=== PATIENT | male | born 1930 | race Caucasian/White ===

== ENCOUNTER → 2019-08-07 | Outpatient (CLI) | payer OTHER ==
[~2019-08-07] MED LIST: DIGO.25; LISHYD2012; METOPROLOL; RANI150; SIMV40; WARF5
== END | disposition home or self-care (01) ==
LOC: LAB SHORT 14:46 → PLD 14:46
DX: L30.9 Dermatitis, unspecified (principal); D48.5 Neoplasm of uncertain behavior of skin
CPT/HCPCS: 88305; 88312

== ENCOUNTER 2019-09-11 22:03 | Observation (INO) | payer OTHER ==
[~2019-09-11] VITALS: Ht 172.7 cm; Wt 78.0 kg
[2019-09-11 23:58] LABS: BASOPHILS ABSOLUTE AUTO 0.03 K/mm3 (0.00-0.23); BASOPHILS PERCENT AUTO 0 % (0-2); EOSINOPHILS PERCENT AUTO 0 % (0-6); Hemoglobin 14.7 g/dL (13.5-17.5); IMMATURE GRAN PERCENT AUTO 5 % (0-1); LYMPHOCYTES ABSOLUTE AUTO 1.35 K/mm3 (0.84-5.20); LYMPHOCYTES PERCENT AUTO 17 % (21-46); MONOCYTES ABSOLUTE AUTO 0.64 K/mm3 (0.16-1.47); MONOCYTES PERCENT AUTO 8 % (4-13); Mean Corpuscular HGB Conc 32.7 g/dL (31.5-36.5); Mean Corpuscular Volume 101 fL (80-100); NEUTROPHILS ABSOLUTE AUTO 5.58 K/mm3 (1.96-9.15); NEUTROPHILS PERCENT AUTO 70 % (41-73); Platelet Count 235 K/mm3 (150-400); RDW Coefficient Variation 15.1 % (11.7-14.2); RDW Standard Deviation 56.6 fL (35.1-46.3); Red Blood Cell Count 4.46 M/mm3 (4.30-5.90)
[2019-09-12 00:14] LABS: Alanine Aminotransfer (ALT/SGP 24 U/L (12-78); Albumin, Blood 3.7 g/dL (3.4-5.0); Albumin/Globulin Ratio 0.9 (0.8-1.8); Alk Phos 120 U/L (50-136); Anion Gap 12 mmol/L (6-16); Aspartate Aminotrans (AST/SGOT 25 U/L (12-37); Bilirubin, Total 1.9 mg/dL (0.1-1.0); Blood Urea Nitrogen 17 mg/dL (8-24); Bun/Creatinine Ratio 20.5 (12.0-20.0); CO2, Blood 22 mmol/L (21-32); Calcium, Blood 8.6 mg/dL (8.5-10.1); Chloride, Blood 101 mmol/L (98-108); Creatinine, Blood 0.83 mg/dL (0.60-1.20); Globulin, Blood 4.1 g/dL (2.2-4.0); Glomerular Filtration Rate >60 (60-); Glucose, Blood 269 mg/dL (70-99); Potassium, Blood 4.2 mmol/L (3.5-5.5); Sodium, Blood 135 mmol/L (136-145); Total Protein, Blood 7.8 g/dL (6.4-8.2); Troponin I <0.015 ng/mL (0.000-0.040)
[2019-09-12] MEDS ORDERED: ELIQUIS2.5 MG PO (00:14)
[2019-09-12] MEDS ORDERED: ETHACRYNIC ACID25 MG PO (00:15)
[2019-09-12] MEDS ORDERED: Tapazole5 MG PO (00:17)
--- NOTE | 2019-09-12 03:38 | NUR ---
PATIENT BEING ADMITTED FOR SOB, DEHYDRATION, HYPOXEMIA. ARRIVED TO THE FLOOR VIA GURNEY, TRANSFERRED TO BED WITH 1 PERSON ASSIST. REPORTS HE STARTED TO HAVE A PRODUCTIVE COUGH ABOUT 3-4 DAYS AGO, BUT SOB FOR ONLY A DAY WHICH INCREASED IN THE LAST 24 HOURS. NO HISTORY OF LUNG DISEASE, BUT HAS SOME MILD CARDIAC DISEASE. BNP 780, NO HISTORY OF CHF. LUNG SOUNDS ARE INSPIRATORY AND EXPIRTORY WHEEZES IN THE UPPER LOBES, RHONCI IN THE BASES. SOB NOTED WITH EXERTION. RESP EVEN AND SHALLOW, NO LABOR BREATHING. COUGH IS PRODUCTIVE AT TIMES BUT PATIENT IS UNABLE TO DESCRIBE STATES HE SWALLOWS IT. ENCOURAGED HIM TO SPIT IT OUT INSTEAD. HR IRREGULAR, NO MURMUR, PACEMAKER/DEFIB NOTED TO THE LEFT CHEST WALL. SCATTERED SKIN BRUISING NOTED FROM FALLS, AND HIS DOG HE STATES. DENIES ANY BOWEL OR URINARY PROBLEMS. IS VERY WEAK STANDING AT THIS TIME. RECOMMEND 1 PERSON ASSIST TO THE BSC, AND URINAL USE. INSTRUCTED TO CALL IF NEED TO USE THE BATHROOM. ADMISSION COMPLETED WITH SON'S HELP. DENIED FLUE SHOT, SANDWHICH GIVEN AND SODA. TUCKED HIM INTO BED. CALL LIGHT IN REACH.
[2019-09-12 05:46] LABS: Adenovirus Not Detected (NOT DETECT); Bordetella pertussis Not Detected (NOT DETECT); Chlamydophila pneumoniae Not Detected (NOT DETECT); Coronavirus 229E Not Detected (NOT DETECT); Coronavirus HKU1 Not Detected (NOT DETECT); Coronavirus NL63 Not Detected (NOT DETECT); Coronavirus OC43 Not Detected (NOT DETECT); Human Metapneumovirus Not Detected (NOT DETECT); Human Rhinovirus/Enterovirus Detected (NOT DETECT); Influenza A Not Detected (NOT DETECT); Influenza A/2009-H1 Not Detected (NOT DETECT); Influenza A/H1 Not Detected (NOT DETECT); Influenza A/H3 Not Detected (NOT DETECT); Influenza B Not Detected (NOT DETECT); Mycoplasma pneumoniae Not Detected (NOT DETECT); Parainfluenza Virus 1 Not Detected (NOT DETECT); Parainfluenza Virus 2 Not Detected (NOT DETECT); Parainfluenza Virus 3 Not Detected (NOT DETECT); Parainfluenza Virus 4 Not Detected (NOT DETECT); Respiratory Syncytial Virus Not Detected (NOT DETECT)
--- NOTE | 2019-09-12 05:57 | NUR ---
SHIFT SUMMARY: SHAYY WAS ADMITTED TO THE FLOOR FOR SOB, HYPOXEMIA, DEHYDRATION AROUND 3 THIS AM. HIS SON AND FRIEND WENT HOME FOR THE EVENING. LUNG SOUNDS ARE RHONCI IN THE BASES AND INSPIRATORY AND EXPIRTORY WHEEZES IN THE UPPER LOBES. O2 AT 2 LITERS AND RUNNING IN THE 90'S. HE IS USUALLY RA AT HOME. COUGH IS PRODUCTIVE BUT HE SWALLOWS IT, ENCOURAGE TO SPIT OUT. RESPIRTORY PANEL SENT TO LAB AWAITING RESULTS. SETTLED HIM INTO THE ROOM, HE SLEPT THE REST OF THE NIGHT. CALL LIGHT REMAINED IN REACH.
--- NOTE | 2019-09-12 09:39 | NUR ---
PERMISSION PATIENT GAVE PERMISSION OF CARE ON 09/12/2019
[2019-09-12 09:57] LABS: Alanine Aminotransfer (ALT/SGP 23 U/L (12-78); Albumin, Blood 3.5 g/dL (3.4-5.0); Albumin/Globulin Ratio 0.9 (0.8-1.8); Alk Phos 110 U/L (50-136); Anion Gap 5 mmol/L (6-16); Aspartate Aminotrans (AST/SGOT 31 U/L (12-37); Bilirubin, Total 1.5 mg/dL (0.1-1.0); Blood Urea Nitrogen 15 mg/dL (8-24); Bun/Creatinine Ratio 19.9 (12.0-20.0); CO2, Blood 29 mmol/L (21-32); Calcium, Blood 8.9 mg/dL (8.5-10.1); Chloride, Blood 102 mmol/L (98-108); Creatinine, Blood 0.75 mg/dL (0.60-1.20); Globulin, Blood 4.1 g/dL (2.2-4.0); Glomerular Filtration Rate >60 (60-); Glucose, Blood 162 mg/dL (70-99); Potassium, Blood 4.4 mmol/L (3.5-5.5); Sodium, Blood 136 mmol/L (136-145); Total Protein, Blood 7.6 g/dL (6.4-8.2)
--- NOTE | 2019-09-12 18:26 | NUR ---
SHIFT SUMMARY- PT IS A/O, PLESANT AND COOPERATIVE. HIS IS STILL HAVING WHEEZES, AND RONCHI. HE IS EATING AND DRINKING WELL. PT FAMILY VISITED INTERMITENTLY THORUGHOUT THIS SHIFT. PT IS UP TO THE RESTROOM.
--- NOTE | 2019-09-13 04:46 | NUR ---
SHIFT SUMMARY ADMITTED FOR SOB. DNR CODE. POSITIVE FOR RHINOVIRUS. CARDIAC DIET, PACEMAKER IN PLACE, 1 ASSIST, A&O X4. RA AT HOME, 2 LPM O2 HERE. [facility] PT. BNP WAS ELEVATED @ ADMIT (780), NO PREVIOUS HX OF CHF. HX: REACTIVE AIRWAY DISEASE, AFIB, HYPERTHYROID, GERD, HYPERLIPIDEMIA, PRESBYCUSIS, FREQUENT FALLS. PROCALCITONIN ONLY SLIGHTLY ELEVATED AT 0.06.
--- NOTE | 2019-09-13 18:25 | NUR ---
PT AOX4 AND COOPERATIVE OF CARE. PT HAS BEEN DOING WELL. PT STILL COUGHING A LOT. PT HAS BEEN ON RA AND IS DOING WELL. PT CALLS APPROPRIATELY AND IS A ONE PERSON WITH FRONT WHEEL WALKER TO RESTROOM. NO DISTRESS NOTED. DENIED ANY PAIN TODAY.
--- NOTE | 2019-09-14 02:05 | NUR ---
PT STATUS PT STATED, "DID YOU SEE THOSE GIRLS WALK PAST MY ROOM? THEY SOUNDED LIKE MY GRANDDAUGHTERS". LATER, HE STATED, "DO YOU HEAR A DOG? I HEARD A DOG BACK THERE". THIS PT HAS NOT BEEN SLEEPING WELL THIS SHIFT, SO THIS MAY BE THE RESULT OF FATIGUE. I HAVE INFORMED CHARGE OF THIS MILD DEVELOPMENT. SHE INSTRUCTS ME TO CONTINUE TO MONITOR.
--- NOTE | 2019-09-14 04:47 | NUR ---
SHIFT SUMMARY ADMITTED FOR SOB. POSITIVE FOR RHINOVIRUS. DNR CODE. HOPEFUL FOR DC TODAY. CARDIAC DIET, FWW W/1 ASSIST, [place], RA, A&O X4. THIS SHIFT HE THOUGHT HE HEARD HIS GRANDDAUGHTERS OUTSIDE HIS ROOM AND A DOG, BUT THIS MAY BE DUE TO FATIGUE. [facility] PT. RA @ HOME. BNP WAS 780 ON ADMIT- NO PREVIOUS DX OF CHF. 1 ASSIST W/FWW TO BATHROOM. PACEMAKER IN PLACE. HX: AFIB, HYPERTHYROID, REACTIVE AIRWAY DISEASE, GERD, FALLS, HYPERLIPIDEMIA.
[2019-09-14] MEDS ORDERED: METO25 PO (12:08)
[2019-09-14] MEDS ORDERED: PRED20 PO (12:11)
[2019-09-14] MEDS ORDERED: ALBU90OI INH (12:13)
--- NOTE | 2019-09-14 13:18 | NUR ---
PT DISCHARGED AT 1230 WITH FAMILY TO TRANSPORT. ALL PAPERS REVEIWED AND SIGNED AND EDUCTIONAL MATERIAL SENT WITH PT. PT AOX4 AND COOPERATIVE OF CARE. PT STILL COUGHING, BUT STATES HE FEELS MUCH BETTER. PT WALKING AROUND INDEPENDENT IN ROOM. ALL PERSONAL BELONGINGS COLLECTED. [facility]EDULED WITH [facility] AND MEDICATION[facility]ED. PT ESCORTED BY THIS VERIFY REP VIA WHEELCHAIR.
== END 2019-09-14 12:57 | disposition home or self-care (01) ==
LOC: ER 22:03 → MEDS 22:04 → ENPENDDIS 09-14 11:21 → MEDS 09-14 12:57
PROVIDERS: Emergency Medicine; ADMIT Hospitalist
DX: J96.01 Acute respiratory failure with hypoxia (principal); J45.901 Unspecified asthma with (acute) exacerbation; J20.6 Acute bronchitis due to rhinovirus; I48.20 Chronic atrial fibrillation, unspecified; E05.90 Thyrotoxicosis, unspecified without thyrotoxic crisis or storm; R79.89 Other specified abnormal findings of blood chemistry; R54 Age-related physical debility; K21.9 Gastro-esophageal reflux disease without esophagitis; E72.20 Disorder of urea cycle metabolism, unspecified; Z91.81 History of falling; Z79.01 Long term (current) use of anticoagulants; Z91.011 Allergy to milk products; Z79.899 Other long term (current) drug therapy; Z87.891 Personal history of nicotine dependence; Z66 Do not resuscitate
CPT/HCPCS: 0099U; 36415; 71046; 80053; 82140; 83690; 83880; 84145; 84484; 85025; 93005; 93010; 94640; 94760; 97110; 97116; 97162; 97530; 99285-25; A9270-GY; G0378; J7512

== ENCOUNTER 2021-10-19 12:09 | Emergency (ER) | payer OTHER ==
[~2021-10-19] VITALS: Ht 172.7 cm; Wt 72.6 kg
[~2021-10-19 12:09] MED LIST changes: +ALBU90OI INH; -DIGO.25; +DIGOX125 MC1 PO; +ELIQUIS2.5 MG PO; +ETHACRYNIC ACID25 MG PO; +METO25 PO; +PRED20 PO; +Tapazole5 MG PO
[2021-10-19 12:29] LABS: Hematocrit 31.4 % (37.0-53.0); Hemoglobin 10.4 g/dL (13.5-17.5); Mean Corpuscular HGB 34.7 pg (26.0-34.0); Mean Corpuscular HGB Conc 33.1 g/dL (31.5-36.5); Mean Corpuscular Volume 105 fL (80-100); Mean Platelet Volume 11.6 fL (9.1-12.4); NRBC ABSOLUTE 0.02 K/mm3 (0.00-0.02); NRBC Auto 1.3 /100 WBC (0.0-0.2); Platelet Count 58 K/mm3 (150-400); RDW Coefficient Variation 17.2 % (11.7-14.2); RDW Standard Deviation 66.2 fL (35.1-46.3)
[2021-10-19 12:57] LABS: Alanine Aminotransfer (ALT/SGP 15 U/L (12-78); Albumin, Blood 3.2 g/dL (3.4-5.0); Albumin/Globulin Ratio 0.9 (0.8-1.8); Alk Phos 96 U/L (50-136); Anion Gap 9 mmol/L (6-16); Aspartate Aminotrans (AST/SGOT 16 U/L (12-37); Bilirubin, Total 1.6 mg/dL (0.1-1.0); Blood Urea Nitrogen 19 mg/dL (8-24); Bun/Creatinine Ratio 25.1 (12.0-20.0); CO2, Blood 27 mmol/L (21-32); Calcium, Blood 8.7 mg/dL (8.5-10.1); Chloride, Blood 101 mmol/L (98-108); Creatinine, Blood 0.76 mg/dL (0.60-1.20); Globulin, Blood 3.5 g/dL (2.2-4.0); Glomerular Filtration Rate >60 (60-); Glucose, Blood 143 mg/dL (70-99); Potassium, Blood 3.9 mmol/L (3.5-5.5); Sodium, Blood 137 mmol/L (136-145); Total Protein, Blood 6.7 g/dL (6.4-8.2)
[2021-10-19 13:20] LABS: Source, Urine Clean Catch
[2021-10-19 13:24] LABS: Bilirubin, Urine Neg (Neg); Blood, Urine 2+ (Neg); Glucose Qualitative, Urine Neg (Neg); Ketones, Urine Neg (Neg); Leukocyte Esterase, Urine Neg (Neg); Nitrite, Urine Neg (Neg); Protein, Urine Neg (Neg); Specific Gravity, Urine 1.015 (1.003-1.022); Urobilinogen, Urine 2+ (Normal)
[2021-10-19 13:30] LABS: BAND PERCENT MAN 3 % (0-8); BASOPHILS PERCENT MAN 0 % (0-2); EOSINOPHILS ABSOLUTE MAN 0.03 K/mm3 (0.00-0.68); EOSINOPHILS PERCENT MAN 2 % (0-6); LYMPHOCYTES % ATYPICAL MANUAL 1 % (0-0); LYMPHOCYTES ABSOLUTE MAN 1.35 K/mm3 (0.84-5.20); LYMPHOCYTES PERCENT MAN 89 % (21-46); MONOCYTES PERCENT MAN 0 % (4-13); NEUTROPHILS ABSOLUTE MAN 0.12 K/mm3 (1.96-9.15); SEG NEUTROPHILS PERCENT MAN 5 % (41-73); TOTAL CELLS COUNTED 100
[2021-10-19 13:36] LABS: Appearance, Urine Clear (Clear); Bacteria Rare /hpf; Color, Urine Pale Yellow (P-Yellow); Squamous Epithelial Cells Rare /hpf (Few); White Blood Cells, Urine 0-2 /hpf (0-5)
[2021-10-19 13:52] LABS: Influenza A, PCR NEGATIVE (NEGATIVE); Influenza B, PCR NEGATIVE (NEGATIVE); Resp Syncytial Virus, PCR NEGATIVE (NEGATIVE); SARS-Cov-2 (COVID-19) PCR, MMC NEGATIVE (NEGATIVE)
[2021-10-19] MEDS ORDERED: FINA5 PO (13:53)
[2021-10-19] MEDS ORDERED: PARO20 PO (13:55)
[2021-10-19] MEDS ORDERED: FURO20 PO (13:55)
[2021-10-19] MEDS ORDERED: ONDA4ODT MM (16:01)
== END 2021-10-19 16:49 | disposition home or self-care (01) ==
LOC: ER 12:09
PROVIDERS: Emergency Medicine
DX: R53.81 Other malaise (principal); D72.819 Decreased white blood cell count, unspecified; R63.0 Anorexia; R11.0 Nausea; I48.20 Chronic atrial fibrillation, unspecified; K21.9 Gastro-esophageal reflux disease without esophagitis; E78.5 Hyperlipidemia, unspecified; Z91.011 Allergy to milk products; Z79.899 Other long term (current) drug therapy; Z79.52 Long term (current) use of systemic steroids
CPT/HCPCS: 0241U; 71045; 80053; 81001; 83880; 84484; 85025; 93005; 93010

== ENCOUNTER → 2021-11-18 | Outpatient (CLI) | payer OTHER ==
[~2021-11-18] MED LIST changes: +FINA5 PO; +FURO20 PO; +ONDA4ODT MM; +PARO20 PO
[2021-11-18 19:24] LABS: Anion Gap 6 mmol/L (6-16); Blood Urea Nitrogen 15 mg/dL (8-24); Bun/Creatinine Ratio 20.5 (12.0-20.0); CO2, Blood 29 mmol/L (21-32); Calcium, Blood 7.9 mg/dL (8.5-10.1); Chloride, Blood 100 mmol/L (98-108); Creatinine, Blood 0.73 mg/dL (0.60-1.20); Glomerular Filtration Rate >60 (60-); Glucose, Blood 109 mg/dL (70-99); Potassium, Blood 4.3 mmol/L (3.5-5.5); Sodium, Blood 135 mmol/L (136-145)
[2021-11-18 19:43] LABS: Hematocrit 25.7 % (37.0-53.0); Hemoglobin 8.6 g/dL (13.5-17.5); Mean Corpuscular HGB Conc 33.5 g/dL (31.5-36.5); Mean Corpuscular Volume 105 fL (80-100); Mean Platelet Volume 11.8 fL (9.1-12.4); NRBC Auto 9.7 /100 WBC (0.0-0.2); Platelet Count 54 K/mm3 (150-400); RDW Coefficient Variation 18.6 % (11.7-14.2); RDW Standard Deviation 68.9 fL (35.1-46.3); Red Blood Cell Count 2.46 M/mm3 (4.30-5.90); White Blood Cell Count 2.06 K/mm3 (4.00-11.30)
[2021-11-18 20:43] LABS: BAND PERCENT MAN 3 % (0-8); BASOPHILS PERCENT MAN 0 % (0-2); EOSINOPHILS ABSOLUTE MAN 0.06 K/mm3 (0.00-0.68); EOSINOPHILS PERCENT MAN 3 % (0-6); LYMPHOCYTES % ATYPICAL MANUAL 6 % (0-0); LYMPHOCYTES ABSOLUTE MAN 1.62 K/mm3 (0.84-5.20); LYMPHOCYTES PERCENT MAN 73 % (21-46); METAMYELOCYTE ABSOLUTE MAN 0.04 K/mm3 (0.00-0.00); METAMYELOCYTE PERCENT MAN 2 % (0-0); MONOCYTES ABSOLUTE MAN 0.04 K/mm3 (0.16-1.47); MONOCYTES PERCENT MAN 2 % (4-13); MYELOCYTE ABSOLUTE MAN 0.04 K/mm3 (0.00-0.00); MYELOCYTE PERCENT MAN 2 % (0-0); NEUTROPHILS ABSOLUTE MAN 0.24 K/mm3 (1.96-9.15); SEG NEUTROPHILS PERCENT MAN 9 % (41-73); TOTAL CELLS COUNTED 100
== END | disposition home or self-care (01) ==
LOC: LAB HH 11:25
PROVIDERS: Nurse Practitioner Family
DX: D61.811 Other drug-induced pancytopenia (principal)
CPT/HCPCS: 80048; 84443; 85007; 85027

== ENCOUNTER → 2021-11-25 | Outpatient (CLI) | payer OTHER ==
[2021-11-25 19:06] LABS: BASOPHILS ABSOLUTE AUTO 0.01 K/mm3 (0.00-0.23); BASOPHILS PERCENT AUTO 1 % (0-2); EOSINOPHILS ABSOLUTE AUTO 0.07 K/mm3 (0.00-0.68); EOSINOPHILS PERCENT AUTO 5 % (0-6); Hematocrit 25.8 % (37.0-53.0); Hemoglobin 8.4 g/dL (13.5-17.5); Mean Corpuscular HGB 34.7 pg (26.0-34.0); Mean Corpuscular HGB Conc 32.6 g/dL (31.5-36.5); Mean Corpuscular Volume 107 fL (80-100); Mean Platelet Volume 11.8 fL (9.1-12.4); NRBC Auto 6.7 /100 WBC (0.0-0.2); RDW Coefficient Variation 19.7 % (11.7-14.2); RDW Standard Deviation 75.8 fL (35.1-46.3); Red Blood Cell Count 2.42 M/mm3 (4.30-5.90)
[2021-11-25 19:30] LABS: IMMATURE GRAN ABSOLUTE AUTO 0.08 K/mm3 (0.00-0.10); IMMATURE GRAN PERCENT AUTO 5 % (0-1); LYMPHOCYTES ABSOLUTE AUTO 0.99 K/mm3 (0.84-5.20); LYMPHOCYTES PERCENT AUTO 66 % (21-46); MONOCYTES ABSOLUTE AUTO 0.08 K/mm3 (0.16-1.47); MONOCYTES PERCENT AUTO 5 % (4-13); NEUTROPHILS ABSOLUTE AUTO 0.27 K/mm3 (1.96-9.15); NEUTROPHILS PERCENT AUTO 18 % (41-73)
[2021-11-25 19:32] LABS: Platelet Count 43 K/mm3 (150-400)
[2021-11-25 19:51] LABS: BAND PERCENT MAN 1 % (0-8); BASOPHILS PERCENT MAN 0 % (0-2); EOSINOPHILS ABSOLUTE MAN 0.04 K/mm3 (0.00-0.68); EOSINOPHILS PERCENT MAN 3 % (0-6); LYMPHOCYTES ABSOLUTE MAN 1.17 K/mm3 (0.84-5.20); LYMPHOCYTES PERCENT MAN 78 % (21-46); MONOCYTES ABSOLUTE MAN 0.01 K/mm3 (0.16-1.47); MONOCYTES PERCENT MAN 1 % (4-13); MYELOCYTE ABSOLUTE MAN 0.01 K/mm3 (0.00-0.00); MYELOCYTE PERCENT MAN 1 % (0-0); NEUTROPHILS ABSOLUTE MAN 0.25 K/mm3 (1.96-9.15); SEG NEUTROPHILS PERCENT MAN 16 % (41-73); TOTAL CELLS COUNTED 100
== END | disposition home or self-care (01) ==
LOC: LAB HH 18:16
PROVIDERS: Nurse Practitioner Family
DX: I50.20 Unspecified systolic (congestive) heart failure (principal); I25.10 Atherosclerotic heart disease of native coronary artery without angina pectoris
CPT/HCPCS: 85025

== ENCOUNTER 2021-11-30 12:11 | Observation (INO) | payer OTHER ==
[~2021-11-30] VITALS: Ht 172.7 cm; Wt 68.0 kg
[~2021-11-30 12:11] MED LIST changes: -FURO20 PO; +FURO40 PO; -METO25 PO; +METO25ER PO; -PARO20 PO; +PAXIL40 MG PO
[2021-11-30 13:58] LABS: Alanine Aminotransfer (ALT/SGP 19 U/L (12-78); Albumin, Blood 3.1 g/dL (3.4-5.0); Albumin/Globulin Ratio 0.9 (0.8-1.8); Alk Phos 123 U/L (50-136); Anion Gap 12 mmol/L (6-16); Aspartate Aminotrans (AST/SGOT 21 U/L (12-37); Bilirubin, Total 2.1 mg/dL (0.1-1.0); Blood Urea Nitrogen 25 mg/dL (8-24); Bun/Creatinine Ratio 34.5 (12.0-20.0); CO2, Blood 21 mmol/L (21-32); Calcium, Blood 8.5 mg/dL (8.5-10.1); Chloride, Blood 95 mmol/L (98-108); Creatinine, Blood 0.72 mg/dL (0.60-1.20); Globulin, Blood 3.6 g/dL (2.2-4.0); Glomerular Filtration Rate >60 (60-); Glucose, Blood 145 mg/dL (70-99); Potassium, Blood 4.5 mmol/L (3.5-5.5); Sodium, Blood 128 mmol/L (136-145); Total Protein, Blood 6.7 g/dL (6.4-8.2)
[2021-11-30] MEDS ORDERED: ACYC800 PO (13:59)
[2021-11-30] MEDS ORDERED: LEVFLO500 PO (14:01)
[2021-11-30 14:13] LABS: International Normalized Ratio 1.4; Prothrombin Time Results 14.4 Sec (9.7-11.5)
[2021-11-30 14:13] LABS: Digoxin (Lanoxin) 1.76 ug/mL (0.80-2.00)
[2021-11-30 14:37] LABS: Hemoglobin 9.7 g/dL (13.5-17.5); Mean Corpuscular HGB 34.9 pg (26.0-34.0); Mean Corpuscular HGB Conc 31.3 g/dL (31.5-36.5); Mean Corpuscular Volume 112 fL (80-100); Mean Platelet Volume 12.3 fL (9.1-12.4); NRBC ABSOLUTE 1.53 K/mm3 (0.00-0.02); NRBC Auto 9.2 /100 WBC (0.0-0.2); Platelet Count 59 K/mm3 (150-400); RDW Coefficient Variation 21.2 % (11.7-14.2); RDW Standard Deviation 84.4 fL (35.1-46.3); Red Blood Cell Count 2.78 M/mm3 (4.30-5.90)
[2021-11-30 15:21] LABS: Influenza A, PCR NEGATIVE (NEGATIVE); Influenza B, PCR NEGATIVE (NEGATIVE); Resp Syncytial Virus, PCR NEGATIVE (NEGATIVE); SARS-Cov-2 (COVID-19) PCR, MMC NEGATIVE (NEGATIVE)
[2021-11-30 16:06] LABS: Base Excess Venous -12.8 mmol/L; Bicarbonate Venous 15.3 mmol/L (24.0-30.0); PCO2 Venous 25.9 mmHg (38-42); PO2 Venous 194 mmHg (38-42); pH Blood Venous 7.32 (7.34-7.37)
[2021-11-30 16:15] LABS: BAND PERCENT MAN 16 % (0-8); BASOPHILS ABSOLUTE MAN 0.33 K/mm3 (0.00-0.23); BASOPHILS PERCENT MAN 2 % (0-2); EOSINOPHILS ABSOLUTE MAN 0.16 K/mm3 (0.00-0.68); EOSINOPHILS PERCENT MAN 1 % (0-6); LYMPHOCYTES % ATYPICAL MANUAL 1 % (0-0); LYMPHOCYTES ABSOLUTE MAN 2.83 K/mm3 (0.84-5.20); LYMPHOCYTES PERCENT MAN 16 % (21-46); METAMYELOCYTE ABSOLUTE MAN 0.16 K/mm3 (0.00-0.00); METAMYELOCYTE PERCENT MAN 1 % (0-0); MONOCYTES ABSOLUTE MAN 0.83 K/mm3 (0.16-1.47); MONOCYTES PERCENT MAN 5 % (4-13); NEUTROPHILS ABSOLUTE MAN 12.19 K/mm3 (1.96-9.15); OTHER CELL PERCENT MAN 1 % (0-0); SEG NEUTROPHILS PERCENT MAN 57 % (41-73); TOTAL CELLS COUNTED 100
--- NOTE | 2021-11-30 16:30 | NUR ---
Pt [place] with care from [place]. Came in for worsening weakness. Pt placed on 3liters due to dropping sats. Has been in for respitory failure and lung disease before. He has chronic afib with a pace. Pt failing unable to ambulate had some falls. Mor fatige and shorness of breath . Screened for cancer tumor markers up pt physican advised him it indicates a lymphoma pt refusing biopsy or treatment. Pt lives at home with family and career development director services from the [place]. Family willing to take him home.Review of services he is on [facility] hopes to stay with their services. Will advise care managers. Pt kps score is 30%. Worseing lung disease and heart disease with symptoms at rest. postive cancer markers pt declining further care or assessment.
--- NOTE | 2021-11-30 17:40 | NUR ---
ADMIT NOTE PT ADMITTED TO MEDICAL FLOOR FROM ED, REPORT RECIEVED FROM SHY. PT ARRIVED VIA GURNEY AND WAS A MAX ASSIST TRANSFER TO THE BED. PT ORIENTED TO , CALL LIGHT SYSTEM, BED CONTROLS AND PHONE. PT IS A&O AND C/O OF FATIGUE. PT REQUEST TO WAIT FOR HIS FAMILY TO BE PRESENT TO FINISH ADMIT QUESTIONS AND REPORTS HE NEEDS TO SLEEP. NO OTHER CHANGES TO REPORT
--- NOTE | 2021-12-01 10:55 | NUR ---
PATIENT SLEEPING AND RESTING COMFORTABLY. FAMILY IS PRESENT IN ROOM.
--- NOTE | 2021-12-01 10:56 | NUR ---
PATIENT IS AWAKE AND ALERT. HE IS SITTING UP EATING BREAKFAST. PATIENT IS ABLE TO DRINK SOME WATER AND SWALLOW HIS PILLS WITH NO PROBLEMS. HE IS OTHERWISE RESTING COMFORTABLY.
--- NOTE | 2021-12-01 11:28 | NUR ---
PT A/O X 4 RESTING IN BED AT THIS TIME VISITING WITH FAMILY/FRIENDS IN ROOM. HE SMILES WITH INTERACTION. HE DENIES PAIN/DISCOMFORT. PT REPORTS HE DOESN OT NEED ANYTHING AT THIS TIME. PT IS ABLE TO REPOSITION SELF AT THIS TIME. HE IS ABKLE TO EAT AND DRINK. PAINAD IS 0/10. NO SIGNS OF ANXIETY OR SOB.
--- NOTE | 2021-12-01 14:33 | NUR ---
PT REPORTED HE HAS DECIDED HE WANTS TO HAVE A CLAIRE CATHETER PLACED FOR COMFORT. PT EDUCATED ON PROCESS AND HE CONTINUED TO REQUEST CLAIRE PLACEMENT.
--- NOTE | 2021-12-01 17:08 | NUR ---
Comfort Care Note: Pt is an 89 year old man with hx of a-fib, BPH, CAD and new dx of leukemia. He was diagnosed with the leukemia at the [facility] a few weeks ago. It was also determined that there was no sense in bone marrow biopsy, as he was not a good candidate for treatment. Over the past several days, the pt has not been able to participate in ADL's due to weakness, and he is no longer eating or drinking. He was admitted and placed on comfort care until he could be discharged and admitted to home hospice, which will be tomorrow. Multiple family members are at bedside. Pt denies any pain or anxiety, and has not required any medications for comfort thus far. Plan for pt to return home tomorrow. Palliative will remain available. No updates needed to care plan at this time.
--- NOTE | 2021-12-01 18:36 | NUR ---
16 [place] CLAIRE CATHETER INSERTED WITHOUT DIFFICULTY. PT TOLERATED THE PROCEDURE WELL.
--- NOTE | 2021-12-01 18:44 | NUR ---
SHIFT SUMMARY: PT IS 89 YOM WHO IS A DNR ON COMFORT CARE. THE PATIENT'S CONDOM CATH WAS REMOVED DURING THE SEARCH ADVERTISING STRATEGIST. A CLAIRE CATHETER WAS PLACED NEAR THE END OF MY SHIFT. PT HAS SKIN TEAR ON RIGHT FOREARM. BANDAGE WAS CHANGED. PT HAS OTHERWISE BEEN RESTING COMFORTABLY WATCHING TV. MULTIPLE FAMILY MEMBERS HAVE VISITED THROUGHOUT THE SHIFT. PLAN IS TO DC THE PATIENT HOME ON HOSPICE.
--- NOTE | 2021-12-01 20:23 | NUR ---
COMFORT: PATIENT IS A&OX4, SON IS AT BEDSIDE. PATIENT IS COMFORTABLE AT THIS TIME. ASSISTED WITH REPOSTIONING.
--- NOTE | 2021-12-02 02:59 | NUR ---
COMFORT: PATIENT REPORTS SL IS TENDER, SITE IS REMOVED. SON IS AT BEDSIDE. PATIENT HAS NO OTHER COMPLAINTS.
--- NOTE | 2021-12-02 03:01 | NUR ---
COMFORT: PATIENT AND SON ARE SLEEPING, NO S/S OF PAIN OR DISCOMFORT:
--- NOTE | 2021-12-02 03:02 | NUR ---
COMFORT: PATIENT IS RESTING COMFORTABLY, CALL ADDISON IS WITH IN REACH. SON REMAINS AT BEDSIDE.
[2021-12-02] MEDS ORDERED: METHIMAZOLE5 M1 PO (03:07)
[2021-12-02] MEDS ORDERED: METO100ER PO (03:10)
[2021-12-02] MEDS ORDERED: MULTI-VITAMIN1 EAC2 PO (03:10)
[2021-12-02] MEDS ORDERED: ONDA4ODT MM (03:10)
[2021-12-02] MEDS ORDERED: NOXAFIL100 MG PO (03:13)
[2021-12-02] MEDS ORDERED: POTA10T PO (03:13)
[2021-12-02] MEDS ORDERED: SENN187 PO (03:14)
[2021-12-02] MEDS ORDERED: SIMV10 PO (03:15)
[2021-12-02] MEDS ORDERED: TBO FILGRASTIM SC (03:17)
--- NOTE | 2021-12-02 07:26 | NUR ---
COMFORT: PATIENT IS SLEEPING WITH NO S/S OF PAIN OR DISCOMFORT.
--- NOTE | 2021-12-02 07:27 | NUR ---
SHIFT SUMMARY: PATIENT AND SON HAVE SLEPT WELL THIS SHIFT. PATIENT CONTINUES TO HAVE NOT COMPLIANTS OF PAIN. CLAIRE PUT OUT 600 MLS OF URINE. PATIENT ATE 100% OF SNACK.
--- NOTE | 2021-12-02 07:39 | NUR ---
PT SLEEPING AND RESTING COMFORTABLY IN BED. FAMILY IS PRESENT IN ROOM.
[2021-12-02] MEDS ORDERED: LORA1 PO (09:10)
[2021-12-02] MEDS ORDERED: MORP20L SL (09:12)
--- NOTE | 2021-12-02 10:09 | NUR ---
PATIENT SITTING UP EATING BREAKFAST. HE WAS ABLE TO TOLERATE TAKING HIS PO MEDICATIONS AND IS EATING WELL. PT APPEARS COMFORTABLE.
--- NOTE | 2021-12-02 11:13 | NUR ---
DISCHARGE SUMMARY: [facility] CAME TO LOADING DOCK HAND PATIENT. PATIENT'S IV WAS REMOVED ON PRIOR SHIFT. HE WAS GIVEN A BED BATH PRIOR TO DISCHARGE. PATIENT'S BELONGINGS WERE GATHERED AND SENT WITH AMBULANCE. OXYGEN TANK WAS SENT WITH PATIENT. PATIENT APPEARED COMFORTABLE. TRANSFERRED OVER TO AMBULANCE [facility] [place] WITH NO PROBLEMS. HOSPICE WILL MEET PATIENT AT HOME.
== END 2021-12-02 11:08 | disposition hospice, home (50) ==
LOC: ER 12:11 → MEDS 12:12
PROVIDERS: Nurse Practitioner Acute Care; Physician Assistant; ADMIT Internal Medicine
DX: Z51.5 Encounter for palliative care (principal); R65.10 Systemic inflammatory response syndrome (SIRS) of non-infectious origin without acute organ dysfunction; J96.01 Acute respiratory failure with hypoxia; I48.20 Chronic atrial fibrillation, unspecified; E87.2 Acidosis; C95.90 Leukemia, unspecified not having achieved remission; N40.0 Benign prostatic hyperplasia without lower urinary tract symptoms; I25.10 Atherosclerotic heart disease of native coronary artery without angina pectoris; F32.A Depression, unspecified; I50.9 Heart failure, unspecified; E05.90 Thyrotoxicosis, unspecified without thyrotoxic crisis or storm; K21.9 Gastro-esophageal reflux disease without esophagitis; E78.5 Hyperlipidemia, unspecified; Z91.011 Allergy to milk products; Z95.0 Presence of cardiac pacemaker; Z20.822 Contact with and (suspected) exposure to COVID-19; Z79.01 Long term (current) use of anticoagulants
CPT/HCPCS: 0241U; 36415; 71045; 80053; 80162; 82803; 83605; 83690; 83735; 83880; 84484; 85025; 85610; 85730; 87040; 93005; 93010; 96374; 99285-25; A9270; G0378; J1940; J2543